=== PATIENT | female | born 1980 | race African-American/Black ===

== ENCOUNTER 2016-11-19 06:20 | Emergency (ER) | payer SELFPAY ==
--- NOTE | 2016-11-19 07:41 | ER Document Report ---
ED GI/ - General Chief Complaint: Vaginal Bleeding Stated Complaint: POS/FALSE PREGO TEST Time Seen by Provider: 11/19/16 07:40 Mode of Arrival: Ambulatory Information source: Patient Notes: 36 yo female c/o heavy vaginal bleeding with cramping, 4 episodes in 1 month, this episode started on Thursday. false then negative few weeks ago at home. PMH: ovarian cyst, umbilical hernia repair, 2010 ectopic resulting in salpingectomy (doesnt remember the side). . No vaginal d/c or odor. No hx hypothyroid.PCP: cuco. No hormones. No contraceptives. TRAVEL OUTSIDE OF THE [place] IN LAST 30 DAYS: No - Related Data Allergies/Adverse Reactions: No Known Allergies Allergy (Verified 02/15/16 01:51) Home Medications: Current Home Medications No Home Medications 11/19/16 [History] Past Medical History - General Information source: Patient - Social History Smoking Status: Current Every Day Smoker Frequency of alcohol use: None Drug Abuse: None Lives with: Spouse/Significant other Family History: None Patient has suicidal ideation: No Patient has homicidal ideation: No Renal/ Medical History: Reports: Hx Ectopic , Hx Ovarian Cysts. Denies: Hx Peritoneal Dialysis Past Surgical History: Reports: Hx Gynecologic Surgery - salpingectomy due to ectopic ? side, Hx Herniorrhaphy, Hx Oral Surgery - WISDOM TEETH - Immunizations Immunizations up to date: Yes Hx Diphtheria, Pertussis, Tetanus Vaccination: Yes Review of Systems - Review of Systems Constitutional: No symptoms reported EENT: No symptoms reported Cardiovascular: No symptoms reported Respiratory: No symptoms reported Gastrointestinal: No symptoms reported Genitourinary: No symptoms reported Female Genitourinary: See HPI Musculoskeletal: No symptoms reported Skin: No symptoms reported Hematologic/Lymphatic: No symptoms reported Neurological/Psychological: No symptoms reported Physical Exam - Vital signs Vitals: Temp Pulse Resp BP Pulse Ox 98.7 F 84 18 112/78 96 11/19/16 06:47 11/19/16 06:47 11/19/16 06:47 11/19/16 06:47 11/19/16 06:47 Interpretation: Normal - General General appearance: Appears well, Alert In distress: None - HEENT Head: Normocephalic, Atraumatic Eyes: Normal Pupils: PERRL Neck: Supple. No: Lymphadenopathy, Thyromegally - Respiratory Respiratory status: No respiratory distress Chest status: Nontender Breath sounds: Normal Chest palpation: Normal - Cardiovascular Rhythm: Regular Heart sounds: Normal auscultation Murmur: No - Abdominal Inspection: Normal Distension: No distension Bowel sounds: Normal Tenderness: Nontender. No: Tender Organomegaly: No organomegaly - Genitourinary External exam: Normal Speculum exam: Cervix closed Vaginal bleeding: Moderate Bimanuel exam: No: Cervical motion tender, Adnexal tenderness - Back Back: Normal, Nontender. No: CVA tenderness - Extremities General upper extremity: Normal inspection, Nontender, Normal color, Normal ROM , Normal temperature General lower extremity: Normal inspection, Nontender, Normal color, Normal ROM , Normal temperature, Normal weight bearing. No: Liseth's sign - Neurological Neuro grossly intact: Yes Cognition: Normal Orientation: AAOx4 [place] Coma Scale Eye Opening: Spontaneous [place] Coma Scale Verbal: Oriented [place] Coma Scale Motor: Obeys Commands [place] Coma Scale Total: 15 Speech: Normal Motor strength normal: LUE, RUE, LLE, RLE Sensory: Normal - Psychological Associated symptoms: Normal affect, Normal mood - Skin Skin Temperature: Warm Skin Moisture: Dry Skin Color: Normal Course - Re-evaluation Re-evalutation: 11/19/16 09:11 negative test, CBC OK. 11/19/16 10:36 Gonorrhea positive will treat with Rocephin 1 g IV since she has a saline lock in her left antecubital. Chlamydia is negative. 11/19/16 11:54 Small left hemorrhagic ovarian cyst - Vital Signs Vital signs: Temp Pulse Resp BP Pulse Ox 98.5 F 70 18 110/70 98 11/19/16 11:37 11/19/16 11:37 11/19/16 11:37 11/19/16 11:37 11/19/16 11:37 - Laboratory Result Diagrams: 11/19/16 07:58 Laboratory results interpreted by me: 11/19/16 11/19/16 07:58 08:37 WBC 11.8 H MCV 79 L MCH 26.7 L N.gonorrhoeae DNA (PCR) DETECTED H Discharge - Discharge Clinical Impression: vaginal bleeding, Gonorrhea Condition: Good Disposition: HOME, SELF-CARE Instructions: Gonorrhea ([facility]), Rocephin ([facility]), Vaginal Bleeding ([facility]), Ovarian Cyst ([facility]) Additional Instructions: sex partner needs to be treated for gonorrhea, if you have sex with him prior to his tx you will get the infection back copy of labs given to you to er if symptoms worsen Please complete the patient satisfaction survey if you get one, and return it.. If you do not receive a survey, then you can go to the [facility] website, [email or web address] and place your comments about your very good care. Thank you very much. It was a pleasure being your medical provider today.
[2016-11-19 08:19] LABS: ABSOLUTE LYMPHOCYTES (AUTO) 4.3 10^3/uL (0.5-4.7); ABSOLUTE NEUT (AUTO) 6.4 10^3/uL (1.7-8.2); BASOPHILS % (AUTO) 0.4 % (0-2); EOSINOPHILS % (AUTO) 0.3 % (0-6); HEMATOCRIT 40.1 % (36.0-47.0); HEMOGLOBIN 13.6 g/dL (12.0-15.5); HGB HCT DIFFERENCE 0.7; LYMPHOCYTES % (AUTO) 36.4 % (13-45); MEAN CORPUSCULAR HEMOGLOBIN 26.7 pg (27.0-33.4); MEAN CORPUSCULAR HGB CONC 33.9 g/dL (32.0-36.0); MEAN CORPUSCULAR VOLUME 79 fl (80-97); MONOCYTES % (AUTO) 8.7 % (3-13); RED BLOOD COUNT 5.11 10^6/uL (3.72-5.28); RED CELL DISTRIBUTION WIDTH 13.6 % (11.5-14.0); SEGMENTED NEUTROPHILS % (AUTO) 54.2 % (42-78); WHITE BLOOD COUNT 11.8 10^3/uL (4.0-10.5)
[2016-11-19 10:20] LABS: CHLAM PCR NOT DETECTED (NOT DETECT)
[2016-11-19] MEDS ORDERED: CEFTRIAXONE INJ 250 MG VIAL IM ONE (10:23)
--- NOTE | 2016-11-19 10:51 | RADIOLOGY REPORT (SQ) ---
EXAM DESCRIPTION: U/S NON OB PEL TV W/DOPPLER COMPLETED DATE/TIME: 11/19/2016 10:21 am REASON FOR STUDY: vaginal bleeding, cramping COMPARISON: Pelvic ultrasound 01/12/2014, 07/26/2012 TECHNIQUE: Dynamic and static grayscale images acquired of the pelvis via transvaginal approach and recorded on PACS. Additional selected color Doppler and spectral images recorded. LIMITATIONS: None. FINDINGS: UTERUS: Contour normal. No mass. Uterus is 7.5 x 4.7 x 4.4 cm in size. ENDOMETRIAL STRIPE: No focal or generalized thickening. No masses. 5 to 6 mm in thickness. CERVIX: Small 7 mm nabothian cyst. RIGHT OVARY: Right ovary is 3.4 x 1.9 x 1.6 cm in size. RIGHT OVARY DOPPLER: Normal arterial vascular flow without evidence for torsion. LEFT OVARY: Left ovary 2.8 x 1.9 x 1.6 cm in size, with a hemorrhagic follicle cyst measuring 1.2 cm in size LEFT OVARY DOPPLER: Normal arterial vascular flow without evidence for torsion. FREE FLUID: None noted. OTHER: No other significant finding. IMPRESSION: Left ovary hemorrhagic cyst 1.2 cm in size. No free pelvic or adnexal free fluid. Otherwise unremarkable study TECHNICAL DOCUMENTATION: JOB ID: [id number]- All Rights Reserved
[2016-11-19] MEDS ORDERED: CEFTRIAXONE 1 GM/D5W RTU 1 GM/50 ML RTUPB IV ONE (11:30)
[2016-11-19 11:48] VITALS: BP 110/70
== END 2016-11-19 12:04 | disposition home or self-care (01) ==
LOC: ER 06:20
DX: A54.9 Gonococcal infection, unspecified (principal); N93.9 Abnormal uterine and vaginal bleeding, unspecified; F17.200 Nicotine dependence, unspecified, uncomplicated
CPT/HCPCS: 99284; 96365; 86900; 86901; 36415; 87210; 84702; 84443; 85025; 87491; 87591; 76830; 93976; J0696

== ENCOUNTER 2017-05-19 10:03 | Emergency (ER) | payer SELFPAY ==
--- NOTE | 2017-05-19 11:18 | ER Document Report ---
ED GI/ - General Chief Complaint: Vaginal Bleeding Stated Complaint: VAGINAL BLEEDING Time Seen by Provider: 05/19/17 11:17 Mode of Arrival: Ambulatory Information source: Patient Notes: 36-year-old female with vaginal bleeding for 3 weeks. She had a normal. Mid April. She is concerned that she might have an STD. Occasional cramping but no pain at this time. No flank pain. No fever or chills. No nausea vomiting or diarrhea. TRAVEL OUTSIDE OF THE [place] IN LAST 30 DAYS: No - Related Data Allergies/Adverse Reactions: No Known Allergies Allergy (Verified 05/19/17 10:05) Past Medical History - General Information source: Patient - Social History Smoking Status: Unknown if Ever Smoked Frequency of alcohol use: None Drug Abuse: None Lives with: Spouse/Significant other Family History: None Renal/ Medical History: Reports: Hx Ectopic , Hx Ovarian Cysts Past Surgical History: Reports: Hx Abdominal Surgery - hernia, Hx Genitourinary Surgery, Hx Gynecologic Surgery - salpingectomy due to ectopic ? side, Hx Herniorrhaphy, Hx Oral Surgery - WISDOM TEETH. Denies: Hx Pacemaker - Immunizations Immunizations up to date: Yes Hx Diphtheria, Pertussis, Tetanus Vaccination: Yes Review of Systems - Review of Systems Constitutional: No symptoms reported EENT: No symptoms reported Cardiovascular: No symptoms reported Respiratory: No symptoms reported Gastrointestinal: No symptoms reported Genitourinary: No symptoms reported Female Genitourinary: See HPI Musculoskeletal: No symptoms reported Skin: No symptoms reported Hematologic/Lymphatic: No symptoms reported Neurological/Psychological: No symptoms reported Physical Exam - Vital signs Vitals: Temp Pulse Resp BP Pulse Ox 99.2 F 84 16 109/63 96 05/19/17 10:10 05/19/17 10:10 05/19/17 10:10 05/19/17 10:10 05/19/17 10:10 Interpretation: Normal - General General appearance: Appears well, Alert - HEENT Head: Normocephalic, Atraumatic Eyes: Normal Pupils: PERRL Neck: Supple. No: Thyromegally - Respiratory Respiratory status: No respiratory distress Chest status: Nontender Breath sounds: Normal Chest palpation: Normal - Cardiovascular Rhythm: Regular Heart sounds: Normal auscultation Murmur: No - Abdominal Inspection: Normal Distension: No distension Bowel sounds: Normal Tenderness: Nontender. No: Tender Organomegaly: No organomegaly - Back Back: Normal, Nontender - Extremities General upper extremity: Normal inspection, Nontender, Normal color, Normal ROM , Normal temperature General lower extremity: Normal inspection, Nontender, Normal color, Normal ROM , Normal temperature, Normal weight bearing. No: Liseth's sign - Neurological Neuro grossly intact: Yes Cognition: Normal Orientation: AAOx4 [place] Coma Scale Eye Opening: Spontaneous [place] Coma Scale Verbal: Oriented [place] Coma Scale Motor: Obeys Commands [place] Coma Scale Total: 15 Speech: Normal Motor strength normal: LUE, RUE, LLE, RLE Sensory: Normal - Psychological Associated symptoms: Normal affect, Normal mood - Skin Skin Temperature: Warm Skin Moisture: Dry Skin Color: Normal Skin irregularity: negative: Rash Course - Re-evaluation Re-evalutation: 05/19/17 UA negative test negative wet mount negative. 05/19/17 19:42 The patient call back to get her STD culture results and they were negative. I told her to follow up with [facility] if the symptoms persist. - Vital Signs Vital signs: Temp Pulse Resp BP Pulse Ox 97.6 F 65 18 101/63 98 05/19/17 13:56 05/19/17 13:56 05/19/17 13:56 05/19/17 13:56 05/19/17 13:56 - Laboratory Result Diagrams: 05/19/17 11:50 Laboratory results interpreted by me: 05/19/17 05/19/17 11:30 11:50 WBC 12.5 H MCV 76 L MCH 25.3 L RDW 14.5 H Absolute Neutrophils 9.2 H Urine Blood LARGE H Urine Urobilinogen 2.0 H Discharge - Discharge Clinical Impression: Vaginal bleeding Condition: Good Disposition: HOME, SELF-CARE Instructions: Azithromycin ([facility]), Chlamydia ([facility]), Gonorrhea ([facility]), Rocephin ( [facility]), Vaginal Bleeding ([facility]) Additional Instructions: Call me in 2 hours for the STD culture results at [phone] Return to the emergency room for worsening symptoms Copy of lab were given to you Urine culture is pending Forms: Return to Work
[2017-05-19 12:27] LABS: RBCS (WET MOUNT) 4+ RBCS SEEN; T.VAGINALIS (WET MOUNT) NO TRICHOMONAS SEEN; WBCS (WET MOUNT) FEW WBCS SEEN; YEAST (WET MOUNT) NO YEAST SEEN
[2017-05-19 12:32] LABS: ABSOLUTE LYMPHOCYTES (AUTO) 2.6 10^3/uL (0.5-4.7); ABSOLUTE MONOCYTES (AUTO) 0.7 10^3/uL (0.1-1.4); ABSOLUTE NEUT (AUTO) 9.2 10^3/uL (1.7-8.2); BASOPHILS % (AUTO) 0.3 % (0-2); EOSINOPHILS % (AUTO) 0.2 % (0-6); HEMATOCRIT 36.6 % (36.0-47.0); HEMOGLOBIN 12.2 g/dL (12.0-15.5); LYMPHOCYTES % (AUTO) 20.8 % (13-45); MEAN CORPUSCULAR HEMOGLOBIN 25.3 pg (27.0-33.4); MEAN CORPUSCULAR HGB CONC 33.3 g/dL (32.0-36.0); MEAN CORPUSCULAR VOLUME 76 fl (80-97); MONOCYTES % (AUTO) 5.3 % (3-13); PLATELET COUNT 287 10^3/uL (150-450); RED BLOOD COUNT 4.81 10^6/uL (3.72-5.28); RED CELL DISTRIBUTION WIDTH 14.5 % (11.5-14.0); SEGMENTED NEUTROPHILS % (AUTO) 73.4 % (42-78); TOTAL CELLS COUNTED % (AUTO) 100 %; WHITE BLOOD COUNT 12.5 10^3/uL (4.0-10.5)
[2017-05-19 12:53] LABS: APPEARANCE,URINE SLIGHTLY-CLOUDY; BILIRUBIN,URINE NEGATIVE (NEGATIVE); GLUCOSE, URINE NEGATIVE (NEGATIVE); KETONES,URINE NEGATIVE (NEGATIVE); LEUKOCYTE ESTERASE,URINE NEGATIVE (NEGATIVE); NITRITE,URINE NEGATIVE (NEGATIVE); PROTEIN,URINE NEGATIVE (NEGATIVE); URINE SPECIFIC GRAVITY 1.031
[2017-05-19 12:56] LABS: COLOR,URINE YELLOW
[2017-05-19] MEDS ORDERED: CEFTRIAXONE INJ 250 MG VIAL IM ONE (13:36)
[2017-05-19] MEDS ORDERED: ONDANSETRON 4 MG TAB.RAPDIS PO ONE (13:37)
[2017-05-19] MEDS ORDERED: AZITHROMYCIN 250 MG TABLET PO ONE (13:37)
[2017-05-19] MEDS ORDERED: LIDOCAINE 1% INJ-PF (10 MG/ML) 30 ML SDV INJ ONE (13:37)
[2017-05-19 13:57] VITALS: BP 101/63
[2017-05-19 14:12] LABS: CHLAM PCR NOT DETECTED (NOT DETECT); GON PCR NOT DETECTED (NOT DETECT)
== END 2017-05-19 13:58 | disposition home or self-care (01) ==
LOC: ER 10:03
DX: N93.9 Abnormal uterine and vaginal bleeding, unspecified (principal); R25.2 Cramp and spasm; Z87.42 Personal history of other diseases of the female genital tract; Z87.59 Personal history of other complications of pregnancy, childbirth and the puerperium
CPT/HCPCS: 99284; 96372; 36415; 87210; 84702; 85025; 81001; 87491; 87591; S0119; J3490; J0696

== ENCOUNTER 2017-12-29 13:18 | Emergency (ER) | payer SELFPAY ==
[2017-12-29] MEDS ORDERED: ONDANSETRON 4 MG TAB.RAPDIS PO ONE (13:55)
--- NOTE | 2017-12-29 13:55 | ER Document Report ---
ED Medical Screen (RME) - General Chief Complaint: Psych Problem Stated Complaint: POSSIBLE DRUG WITHDRAWAL Time Seen by Provider: 12/29/17 13:47 Mode of Arrival: Ambulatory Information source: Patient Notes: 37-year-old female presents the emergency department for opiate withdrawal and depression. Patient states that she took 3 Percocet tablets this morning with cocaine. Patient states that she is taken a smaller amount of the drugs. She states that she is withdrawing at this time. She states that she is having abdominal cramping, nausea, vomiting. Patient denies any alcohol use. She denies any other drugs. Patient states that she feels depressed. She denies any suicidal or homicidal ideations. She denies any delusions or hallucinations. Patient is requesting rehabilitative services. TRAVEL OUTSIDE OF THE [place] IN LAST 30 DAYS: No - Related Data Allergies/Adverse Reactions: No Known Allergies Allergy (Verified 05/19/17 10:05) Past Medical History - Social History Frequency of alcohol use: Occasional Drug Abuse: Cocaine, Prescription drugs - Past Medical History Cardiac Medical History: Denies: Hx Coronary Artery Disease, Hx Heart Attack, Hx Hypertension Pulmonary Medical History: Denies: Hx Asthma, Hx Bronchitis, Hx COPD, Hx Pneumonia Neurological Medical History: Denies: Hx Cerebrovascular Accident, Hx Seizures Renal/ Medical History: Reports: Hx Ectopic , Hx Ovarian Cysts. Denies: Hx Peritoneal Dialysis Musculoskeltal Medical History: Denies Hx Arthritis Skin Medical History: Denies Hx MRSA Past Surgical History: Reports: Hx Abdominal Surgery - hernia, Hx Genitourinary Surgery, Hx Gynecologic Surgery - salpingectomy due to ectopic ? side, Hx Herniorrhaphy, Hx Oral Surgery - WISDOM TEETH. Denies: Hx Pacemaker - Immunizations Immunizations up to date: Yes Hx Diphtheria, Pertussis, Tetanus Vaccination: Yes Physical Exam - Vital signs Vitals: Temp Pulse Resp BP Pulse Ox 98.6 F 108 H 16 118/74 96 12/29/17 13:26 12/29/17 13:26 12/29/17 13:26 12/29/17 13:26 12/29/17 13:26 Course - Vital Signs Vital signs: Temp Pulse Resp BP Pulse Ox 98.6 F 108 H 16 118/74 96 12/29/17 13:26 12/29/17 13:26 12/29/17 13:26 12/29/17 13:26 12/29/17 13:26
[2017-12-29] MEDS ORDERED: HALOPERIDOL LACTATE INJ 5 MG/1 ML VIAL IM ONE (14:20)
[2017-12-29] MEDS ORDERED: LORAZEPAM INJ 2 MG/1 ML VIAL IM ONE (14:20)
[2017-12-29 14:23] LABS: ABSOLUTE LYMPHOCYTES (AUTO) 4.3 10^3/uL (0.5-4.7); ABSOLUTE MONOCYTES (AUTO) 0.8 10^3/uL (0.1-1.4); ABSOLUTE NEUT (AUTO) 6.4 10^3/uL (1.7-8.2); BASOPHILS % (AUTO) 0.3 % (0-2); EOSINOPHILS % (AUTO) 0.1 % (0-6); HEMATOCRIT 36.9 % (36.0-47.0); HEMOGLOBIN 12.9 g/dL (12.0-15.5); LYMPHOCYTES % (AUTO) 37.4 % (13-45); MEAN CORPUSCULAR HEMOGLOBIN 26.2 pg (27.0-33.4); MEAN CORPUSCULAR VOLUME 75 fl (80-97); MONOCYTES % (AUTO) 7.1 % (3-13); PLATELET COUNT 304 10^3/uL (150-450); RED BLOOD COUNT 4.92 10^6/uL (3.72-5.28); RED CELL DISTRIBUTION WIDTH 13.4 % (11.5-14.0); SEGMENTED NEUTROPHILS % (AUTO) 55.1 % (42-78); TOTAL CELLS COUNTED % (AUTO) 100 %; WHITE BLOOD COUNT 11.6 10^3/uL (4.0-10.5)
--- NOTE | 2017-12-29 14:27 | ER Document Report ---
ED Psych Disorder / Suicide - General Chief Complaint: Psych Problem Stated Complaint: POSSIBLE DRUG WITHDRAWAL Time Seen by Provider: 12/29/17 13:47 Mode of Arrival: Ambulatory Notes: 37-year-old female presents the emergency department for opiate withdrawal and depression under psychiatric IVC.. Patient states that she took 3 Percocet tablets this morning with cocaine. Patient states that she is taken a smaller amount of the drugs. She states that she is withdrawing at this time. Patient denies any alcohol use. She denies any other drugs. Patient states that she feels depressed. She denies any suicidal or homicidal ideations. She denies any delusions or hallucinations. The patient was seen in yard worker today asking to get into rehabilitation. She told him that if she does not get into rehabilitation there will be no tomorrow. The yard worker took this as a suicidal threat. IVC papers were filled out and the patient was brought here to the ER. Patient is very agitated. Patient has been not very cooperative with police and deputies. Patient does not want to answer questions for psychiatric workers. TRAVEL OUTSIDE OF THE [place] IN LAST 30 DAYS: No - Related Data Allergies/Adverse Reactions: No Known Allergies Allergy (Verified 05/19/17 10:05) Past Medical History - General Information source: Patient - Social History Smoking Status: Current Every Day Smoker Frequency of alcohol use: Occasional Drug Abuse: Cocaine, Prescription drugs Family History: None Patient has suicidal ideation: No Patient has homicidal ideation: No - Past Medical History Cardiac Medical History: Denies: Hx Coronary Artery Disease, Hx Heart Attack, Hx Hypertension Pulmonary Medical History: Denies: Hx Asthma, Hx Bronchitis, Hx COPD, Hx Pneumonia Neurological Medical History: Denies: Hx Cerebrovascular Accident, Hx Seizures Renal/ Medical History: Reports: Hx Ectopic , Hx Ovarian Cysts. Denies: Hx Peritoneal Dialysis Musculoskeletal Medical History: Denies Hx Arthritis Skin Medical History: Denies Hx MRSA Past Surgical History: Reports: Hx Abdominal Surgery - hernia, Hx Genitourinary Surgery, Hx Gynecologic Surgery - salpingectomy due to ectopic ? side, Hx Herniorrhaphy, Hx Oral Surgery - WISDOM TEETH. Denies: Hx Pacemaker - Immunizations Immunizations up to date: Yes Hx Diphtheria, Pertussis, Tetanus Vaccination: Yes Review of Systems - Review of Systems Constitutional: denies: Chills, Fever Cardiovascular: denies: Chest pain Respiratory: denies: Short of breath Gastrointestinal: Diarrhea, Nausea Neurological/Psychological: denies: Hallucinations, Headaches -: Yes All other systems reviewed and negative Physical Exam - Vital signs Vitals: Temp Pulse Resp BP Pulse Ox 98.6 F 108 H 16 118/74 96 12/29/17 13:26 12/29/17 13:26 12/29/17 13:26 12/29/17 13:26 12/29/17 13:26 - Notes Notes: GENERAL_APPEARANCE: well_nourished, alert, agitated uncooperative, no_acute_ distress, no_obvious_discomfort. VITALS: reviewed, see vital signs table. HEAD: no_swelling\tenderness on the head. EYES: PERRL, EOMI, conjunctiva_clear. NOSE: no_nasal_discharge. MOUTH: (-)decreased moisture. THROAT: no_tonsilar_inflammation, no_airway_obstruction. no_lymphadenopathy NECK: supple, no_neck_tenderness, (-)thyromegaly. BACK: no_back_tenderness. CHEST_WALL: no_chest_tenderness. LUNGS: no_wheezing, no_rales, no_rhonchi, (-)accessory muscle use, good air exchange bilateral. HEART: normal_rate, normal_rhythm, normal_S1, normal_S2, (-)S3, (-)S4, no_ murmur, no_rub. ABDOMEN: normal_BS, soft, no_abd_tenderness, (-)guarding, (-)rebound, no_ organomegaly, no_abd_masses. EXTREMITIES: good pulses in all_extremities, no_swelling\tenderness in the extremities, no_edema. SKIN: warm, dry, good_color, no_rash. MENTAL_STATUS: speech_clear, oriented_X_3, normal_affect, responds_ appropriately to questions. NEURO: Neg Motor or Sensory Deficits on exam, CN 2-12 intact, DTR 2+ symmetric x 4, No cerbellar signs PSYCH: Patient is very agitated. She denies suicidal or homicidal thoughts. Denies visual auditory hallucinations. She does admit to telling the yard worker that there may be no tomorrow. She stated that this is a possibility she could always overdose no matter what time or day she takes the drugs. Course - Re-evaluation Re-evalutation: 12/29/17 14:26 Patient arrives under IVC papers. Patient made suicidal threats to a yard worker. flow worker has IVC the patient. Patient is polysubstance abuser crack cocaine and opioids. States he usually orally takes Percocet. She usually smokes or snorts crack cocaine. Patient is so agitated. We will give her some Ativan and Haldol. She is not very cooperative she is fighting with the security staff. We will allow her to calm down before we get a full evaluation but we will upheld the IVC at this time she is certainly a danger to herself and others. 12/29/17 17:32 Patient is calm down with medications. Lab work was fairly reassuring. Sodium was 145 but this is likely due to dehydration due to her drug use I imagine she is not a properly hydrating. We will encourage some water and hydration here. Otherwise she is medically stable for any kind of inpatient or outpatient psychiatric care or detox. - Vital Signs Vital signs: Temp Pulse Resp BP Pulse Ox 98.6 F 108 H 16 118/74 96 12/29/17 13:26 12/29/17 13:26 12/29/17 13:26 12/29/17 13:26 12/29/17 13:26 - Laboratory Result Diagrams: 12/29/17 13:55 12/29/17 13:55 Laboratory results interpreted by me: 12/29/17 12/29/17 12/29/17 13:55 13:55 13:55 WBC 11.6 H MCV 75 L MCH 26.2 L Sodium 145.7 H Est GFR (Non-Af Amer) 51 L Urine Ketones TRACE H Urine Urobilinogen 4.0 H Ur Leukocyte Esterase TRACE H Acetaminophen 12/29/17 13:55 WBC MCV MCH Sodium Est GFR (Non-Af Amer) Urine Ketones Urine Urobilinogen Ur Leukocyte Esterase Acetaminophen < 10 L Discharge - Discharge Clinical Impression: Passive suicidal ideations, Polysubstance abuse Condition: Good Disposition: PSYCH HOSP/UNIT
[2017-12-29 14:33] LABS: APPEARANCE,URINE SLIGHTLY-CLOUDY; BILIRUBIN,URINE NEGATIVE (NEGATIVE); COLOR,URINE YELLOW; GLUCOSE, URINE NEGATIVE (NEGATIVE); KETONES,URINE TRACE mg/dL (NEGATIVE); LEUKOCYTE ESTERASE,URINE TRACE (NEGATIVE); NITRITE,URINE NEGATIVE (NEGATIVE); PROTEIN,URINE NEGATIVE (NEGATIVE); URINE SPECIFIC GRAVITY 1.021
[2017-12-29 14:47] LABS: ALANINE AMINOTRANSFERASE 19 U/L (9-52); ALBUMIN 4.3 g/dL (3.5-5.0); ALCOHOL 157 mg/dL (NONE DETECTED); ALKALINE PHOSPHATASE 91 U/L (38-126); ANION GAP 11 (5-19); ASPARTATE AMINO TRANSFERASE 34 U/L (14-36); BILIRUBIN,DIRECT 0.2 mg/dL (0.0-0.4); BILIRUBIN,TOTAL 0.3 mg/dL (0.2-1.3); BLOOD UREA NITROGEN 10 mg/dL (7-20); CALCIUM 9.2 mg/dL (8.4-10.2); CARBON DIOXIDE 29 mmol/L (22-30); CHLORIDE 106 mmol/L (98-107); GLUCOSE 97 mg/dL (75-110); POTASSIUM 4.2 mmol/L (3.6-5.0); SODIUM 145.7 mmol/L (137-145); TOTAL PROTEIN 7.6 g/dL (6.3-8.2)
[2017-12-29 15:01] LABS: URINE AMPHETAMINES SCREEN NEGATIVE; URINE BARBITURATES SCREEN NEGATIVE; URINE COCAINE SCREEN UNCONFIRMED POSITIVE; URINE MARIJUANA (THC) SCREEN NEGATIVE; URINE METHADONE SCREEN NEGATIVE; URINE PHENCYCLIDINE SCREEN NEGATIVE
[2017-12-29 15:07] LABS: URINE BENZODIAZEPINES SCREEN NEGATIVE
--- NOTE | 2017-12-29 15:48 | PSYCHOLOGICAL NOTE ---
Psych Note - Psych Note Date seen by psych provider: 12/29/17 Time seen by psych provider: 14:30 - Collateral from [facility] from [id number] Psych Note: Reason for Consult: IVC, SA, SI Contact Permissions: Mauricio from [facility] [phone], he is not on-call tonight so of after hours then Bridget Trejo [phone] (patient gave consent only to let him know she was in the ED, on 24 hour observation, where her car was and that she would call him as soon as she could) Patient is a 37 year old female who presented to the ED today via LE, petitioned for IVC by [facility] for SA, SI and aggression toward property. She denied current SI/HI. She stated if she had SI she would tell this clinician. When asked if she knew why she was in the ED she said "no not really." When confronted about her comment about "if I don't get detox tonight then there will be no tomorrow" when [facility] was on site visiting with her she replied "I did not mean I wanted to kill myself I meant if I can't get detox today then I won' t be getting detox tomorrow." She said she was still interested in detox. When informed she may have to stay the night given her reaction when [facility] saw her on site and then once she was in the ED she commented "I can't stay the night I have kids and a job." She was challenged about what she would have done about these concerns if she had gotten a bed for detox. She responded "nobody knows what I was doing yet." When informed this clinician would call anyone she wanted to let them know she asked her be called, jacques palma she was on a 24 hour observation, that her [facility], that their daughter knew where that person's house was and that patient would call him as soon as she could. This clinician did contact the to let him know these things. Patient was alert and oriented to person, place and situation. She was calm and cooperative for/with this clinician. She was somewhat guarded but did answer questions. She denied current SI/HI and said her comment about if no detox today then no tomorrow was about not going to detox tomorrow not killing herself. She did not appear to be responding to internal stimuli as evidenced by answering questions appropriately when addressed, making some eye contact as the evaluation went on and staying on topic. Thought processes were linear. Conversational speech was within normal limits for rate, tone and prosody. Intellectual abilities are estimated to be average. Insight, judgment and impulse control were impaired given under the influence of at least opiates and cocaine (patient reported to medical staff use of both today). Mauricio from [facility] provided the following collateral information. Patient originally from [facility]. She called [facility] for SA detox (Opiates, Cocaine: at least a gram per day and Alcohol) and SI (said didn't want to live anymore, didn 't trust herself, if no help by tomorrow will not be here). Once on site a friend named Megan was present and CHEYANNE BACA arrived. History of Depression and PTSD. Outpatient provider is Jessi in , last visit was for medication management last week. Medications include: Trazodone 25-50MG QHS, Vistaril 25MG TID, Prozac 20MG QAm and Prazosin 1MG QHS. She said she has been into drugs all her life. [facility] worker stated when a bed was not available patient made comment "if I don't get help and detox bed tonight there will be no tomorrow," then she became hostile via flipped grill on porch, slammed it against apartment wall and was throwing stuff, so he called in order to maintain safety [facility] Review of chart revealed patient informed medical staff she used cocaine this morning and took 3 Percocets. She further said she typically takes 5-10 Percocet. Her UDS was positive for Cocaine and Serum Alcohol Level was 157. Due to her lack of cooperation and irritable mood upon arrival to the ED Haldol 5MG IM and Ativan 2MG IM were administered. Diagnosis: Polysubstance Use 292.89 (F14.229) Cocaine Intoxication, Without Perceptual Disturbance, With Moderate to Severe Use Disorder 303.00 (F10.229) Alcohol Intoxication, With Moderate or Severe Use Disorder 292.9 (F11.99) Unspecified Opioid Related Use Disorder (per patient report) 309.81 (F43.10) Posttraumatic Stress Disorder by history Impression/Plan: Recommendation to maintain IVC given patient's UDS was positive for Cocaine and Serum Alcohol Level was 157 and her lack of cooperation when she first arrived to the ED. She denied current SI and said the statement she made with [facility] on site was referencing if not able to get detox tonight then not going to detox tomorrow while [facility] worker report is that it was in direct relation to SI. Will allow patient to sober up and then reassess in the morning for further determination of IVC. Patient stated she was still interested in detox. If she continues to be tomorrow morning will likely rescind IVC and discharge to [facility] for further voluntary SA detox placement. Consulted with Dr. Dhaliwal regarding the management and care of patient. ED Physician in agreement with recommendations.
--- NOTE | 2017-12-29 18:33 | EKG REPORT ---
SEVERITY:- NORMAL ECG - SINUS RHYTHM : Confirmed by: Loy Napoles MD 29-Dec-2017 18:31:13
--- NOTE | 2017-12-30 09:15 | ER Document Report ---
Doctor's Note Notes: 12/30/17 09:13 This is a 37-year-old female with a history of polysubstance abuse who was brought in under IVC papers because of suicidal ideations. Patient was agitated on arrival in the emergency room and required sedation. Her vital signs have been stable. Her labs show a white blood count of 11.6 (felt to be stress related), EtOH of 157 and a urine drug screen positive for cocaine. Patient has been evaluated by psychiatry and is awaiting placement.
--- NOTE | 2017-12-30 10:27 | PSYCHOLOGICAL NOTE ---
Psych Note - Psych Note Date seen by psych provider: 12/30/17 Time seen by psych provider: 07:45 Psych Note: Reason for Consult: IVC, SA, SI Contact Permissions: Mauricio from [facility] [phone], he is not on-call tonight so of after hours then Bridget Trejo [phone] (patient gave consent only to let him know she was in the ED, on 24 hour observation, where her car was and that she would call him as soon as she could) Patient is a 37 year old female who presented to the ED today via LE, petitioned for IVC by [facility] for SA, SI and aggression toward property. Clinician conducted check-in with patient. She reports that she is a little bit tired but confirms that remembers how and why she came to [facility]. She reports that she was feeling depressed and going through withdrawal symptoms. Patient denies thoughts of wanting to kill or harm herself. She continued to report that she uses opiates and cocaine "every other day" and has gone to detox in the past. She states the last time she went to detox was last year and had outpatient substance abuse treatment through [facility]. She confirms she is on medications with [facility] but could only remember Prozac and Vistaril reporting that she is prescribed to other medications also. Patient is alert and orientated to person, place, time and circumstance. Mood is euthymic with congruent affect. Patient denies suicidal and homicidal ideation. Delusions are absent behaviors congruent with an intact reality based presentation i.e. organized and linear thought process. Eye contact is fair. Intellectual abilities appear to be within the average range. Attention and concentration are good. Insight, judgment, impulse control are fair. No medication recommendations at this time Diagnosis: Polysubstance Use 292.89 (F14.229) Cocaine Intoxication, Without Perceptual Disturbance, With Moderate to Severe Use Disorder 303.00 (F10.229) Alcohol Intoxication, With Moderate or Severe Use Disorder 292.9 (F11.99) Unspecified Opioid Related Use Disorder (per patient report) 309.81 (F43.10) Posttraumatic Stress Disorder by history Impression\\plan: Patient is recommended for rescind of IVC and is cleared from acute psychiatric services. Patient arrived to [facility] ED under the influence and then went through withdrawal symptoms. Patient is no longer under the influence and denies thoughts of wanting to kill or harm herself. Patient discloses interest in substance abuse treatment and has an existing provider with [facility]. Patient is recommended to follow-up with [facility], [facility], for continued assistance in obtaining placement in detox. Patient was provided local resource list of detox facilities and other substance abuse treatment options. Dr. Dhaliwal was consulted and the care management this patient; attending physician is agreement with recommendations and disposition.
[2017-12-30 11:26] VITALS: BP 114/76
== END 2017-12-30 10:50 ==
LOC: ER 13:18
DX: R45.851 Suicidal ideations (principal); F14.10 Cocaine abuse, uncomplicated; F11.10 Opioid abuse, uncomplicated; F32.9 Major depressive disorder, single episode, unspecified; F17.200 Nicotine dependence, unspecified, uncomplicated; R19.7 Diarrhea, unspecified; R11.0 Nausea
CPT/HCPCS: 93005; 99285; 96372; 36415; 80307 ×3; 85025; 81025; 80053; 81001; 93010; S0119; J1630; J2060

== ENCOUNTER 2019-04-22 13:27 | Emergency (ER) | payer SELFPAY ==
[2019-04-22 13:38] VITALS: BP 143/77
[2019-04-22] MEDS ORDERED: ONDANSETRON 4 MG TAB.RAPDIS PO ONE (13:39)
[2019-04-22] MEDS ORDERED: NORMAL SALINE 1000 ML 1,000 ML IV ONE (13:39)
--- NOTE | 2019-04-22 13:40 | ER Document Report ---
ED Medical Screen (RME) - General Chief Complaint: Nausea Stated Complaint: LIGHTHEADED,NAUSEA,PALPITATION Time Seen by Provider: 04/22/19 13:36 TRAVEL OUTSIDE OF THE [place] IN LAST 30 DAYS: No - HPI Notes: 04/22/19 13:39 Patient is a 38-year-old female with mental health issues, no other medical issues, who presents complaining of nausea, lightheadedness, and occasional palpitations over the past few days. She has had decreased p.o. intake. She is still urinating normally. Patient does note some diarrhea as well. No fever, chest pain, shortness of breath, headache, abdominal pain. I have treated and performed a rapid initial assessment of this patient. A comprehensive ED assessment and evaluation of the patient, analysis of test results and completion of medical decision making process will be conducted by additional ED providers. PHYSICAL EXAMINATION: GENERAL: Well-appearing, well-nourished and in no acute distress. A&Ox4. Answers questions appropriately. Heart: RRR Lungs: grossly CTAB Abd: Limited exam in triage, grossly nontender. - Related Data Allergies/Adverse Reactions: No Known Allergies Allergy (Verified 05/19/17 10:05) Past Medical History - Past Medical History Cardiac Medical History: Denies: Hx Coronary Artery Disease, Hx Heart Attack, Hx Hypertension Pulmonary Medical History: Denies: Hx Asthma, Hx Bronchitis, Hx COPD, Hx Pneumonia Neurological Medical History: Denies: Hx Cerebrovascular Accident, Hx Seizures Renal/ Medical History: Reports: Hx Ectopic , Hx Ovarian Cysts. Denies: Hx Peritoneal Dialysis Musculoskeltal Medical History: Denies Hx Arthritis Skin Medical History: Denies Hx MRSA Past Surgical History: Reports: Hx Abdominal Surgery - hernia, Hx Genitourinary Surgery, Hx Gynecologic Surgery - salpingectomy due to ectopic ? side, Hx Herniorrhaphy, Hx Oral Surgery - WISDOM TEETH. Denies: Hx Pacemaker - Immunizations Immunizations up to date: Yes Hx Diphtheria, Pertussis, Tetanus Vaccination: Yes Physical Exam - Vital signs Vitals: Pulse Resp BP Pulse Ox 88 16 143/77 H 97 04/22/19 13:37 04/22/19 13:37 04/22/19 13:37 04/22/19 13:37 Course - Vital Signs Vital signs: Temp Pulse Resp BP Pulse Ox 88 16 143/77 H 97 04/22/19 13:37 04/22/19 13:37 04/22/19 13:37 04/22/19 13:37
[2019-04-22 14:08] LABS: ABSOLUTE LYMPHOCYTES (AUTO) 2.2 10^3/uL (0.5-4.7); ABSOLUTE MONOCYTES (AUTO) 0.7 10^3/uL (0.1-1.4); ABSOLUTE NEUT (AUTO) 9.6 10^3/uL (1.7-8.2); BASOPHILS % (AUTO) 0.3 % (0-2); HEMATOCRIT 37.9 % (36.0-47.0); HEMOGLOBIN 13.1 g/dL (12.0-15.5); LYMPHOCYTES % (AUTO) 17.7 % (13-45); MEAN CORPUSCULAR HEMOGLOBIN 26.1 pg (27.0-33.4); MEAN CORPUSCULAR HGB CONC 34.6 g/dL (32.0-36.0); MEAN CORPUSCULAR VOLUME 75 fl (80-97); MONOCYTES % (AUTO) 5.3 % (3-13); PLATELET COUNT 288 10^3/uL (150-450); RED BLOOD COUNT 5.02 10^6/uL (3.72-5.28); RED CELL DISTRIBUTION WIDTH 13.7 % (11.5-14.0); SEGMENTED NEUTROPHILS % (AUTO) 76.7 % (42-78); TOTAL CELLS COUNTED % (AUTO) 100 %; WHITE BLOOD COUNT 12.5 10^3/uL (4.0-10.5)
[2019-04-22 14:22] LABS: ALBUMIN 4.9 g/dL (3.5-5.0); ALKALINE PHOSPHATASE 103 U/L (38-126); ANION GAP 9 (5-19); ASPARTATE AMINO TRANSFERASE 38 U/L (14-36); BILIRUBIN,TOTAL 0.4 mg/dL (0.2-1.3); BLOOD UREA NITROGEN 12 mg/dL (7-20); CALCIUM 9.4 mg/dL (8.4-10.2); CARBON DIOXIDE 27 mmol/L (22-30); CHLORIDE 104 mmol/L (98-107); GLUCOSE 91 mg/dL (75-110); POTASSIUM 4.1 mmol/L (3.6-5.0); TOTAL PROTEIN 8.4 g/dL (6.3-8.2)
--- NOTE | 2019-04-22 14:51 | EKG REPORT ---
SEVERITY:- BORDERLINE ECG - SINUS RHYTHM PROBABLE LEFT ATRIAL ABNORMALITY : Confirmed by: Kelly Castaneda MD 22-Apr-2019 14:49:51
== END 2019-04-22 15:38 | disposition left against medical advice (07) ==
LOC: ER 13:27
DX: R11.0 Nausea (principal); R42 Dizziness and giddiness; R00.2 Palpitations
CPT/HCPCS: 93005; 36415; 83690; 83735; 84443; 85025; 80053; 93010; S0119; 99281

== ENCOUNTER 2019-09-17 13:00 | Emergency (ER) | payer SELFPAY ==
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
[2019-09-17 14:52] LABS: APPEARANCE,URINE CLEAR; BILIRUBIN,URINE NEGATIVE (NEGATIVE); COLOR,URINE STRAW; GLUCOSE, URINE NEGATIVE (NEGATIVE); KETONES,URINE NEGATIVE (NEGATIVE); LEUKOCYTE ESTERASE,URINE NEGATIVE (NEGATIVE); NITRITE,URINE NEGATIVE (NEGATIVE); PROTEIN,URINE NEGATIVE (NEGATIVE); URINE SPECIFIC GRAVITY 1.006; UROBILINOGEN,URINE NEGATIVE mg/dL (<2.0)
[2019-09-17] MEDS ORDERED: KETOROLAC TROMETHAMINE INJ/PF 30 MG/1 ML SDV IV ONE (15:11)
[2019-09-17 16:13] LABS: ABSOLUTE LYMPHOCYTES (AUTO) 1.8 10^3/uL (0.5-4.7); ABSOLUTE MONOCYTES (AUTO) 0.4 10^3/uL (0.1-1.4); ABSOLUTE NEUT (AUTO) 11.3 10^3/uL (1.7-8.2); BASOPHILS % (AUTO) 0.3 % (0-2); EOSINOPHILS % (AUTO) 0.1 % (0-6); HEMATOCRIT 37.8 % (36.0-47.0); LYMPHOCYTES % (AUTO) 13.2 % (13-45); MEAN CORPUSCULAR HGB CONC 34.5 g/dL (32.0-36.0); MEAN CORPUSCULAR VOLUME 76 fl (80-97); MONOCYTES % (AUTO) 3.3 % (3-13); PLATELET COUNT 296 10^3/uL (150-450); RED BLOOD COUNT 5.01 10^6/uL (3.72-5.28); RED CELL DISTRIBUTION WIDTH 14.1 % (11.5-14.0); SEGMENTED NEUTROPHILS % (AUTO) 83.1 % (42-78); TOTAL CELLS COUNTED % (AUTO) 100 %; WHITE BLOOD COUNT 13.6 10^3/uL (4.0-10.5)
[2019-09-17 16:30] LABS: ALBUMIN 4.1 g/dL (3.5-5.0); ALKALINE PHOSPHATASE 78 U/L (38-126); ANION GAP 5 (5-19); ASPARTATE AMINO TRANSFERASE 30 U/L (14-36); BILIRUBIN,TOTAL 0.4 mg/dL (0.2-1.3); BLOOD UREA NITROGEN 11 mg/dL (7-20); CALCIUM 9.4 mg/dL (8.4-10.2); CARBON DIOXIDE 26 mmol/L (22-30); CHLORIDE 106 mmol/L (98-107); GLUCOSE 90 mg/dL (75-110); POTASSIUM 4.3 mmol/L (3.6-5.0); TOTAL PROTEIN 7.2 g/dL (6.3-8.2)
--- NOTE | 2019-09-17 16:38 | RADIOLOGY REPORT (SQ) ---
EXAM DESCRIPTION: CT ABD/PELVIS WITH IV ONLY IMAGES COMPLETED DATE/TIME: 09/17/2019 4:24 pm REASON FOR STUDY: left flank pain COMPARISON: None. TECHNIQUE: CT scan of the abdomen and pelvis performed using helical scanning technique with dynamic intravenous contrast injection. No oral contrast. Images reviewed with lung, soft tissue, and bone w indows. Reconstructed coronal and sagittal MPR images reviewed. Delayed images for evaluation of the urinary system also acquired. All images stored on PACS. All CT scanners at this facility use dose modulation, iterative reconstruction, and/or weight based d osing when appropriate to reduce radiation dose to as low as reasonably achievable (ALARA). [facility]: Dose Right [facility]: CareDose [facility]: Dose Right [facility]: Teradose 4D [facility]: Teranetics CONTRAST TYPE AND DOSE: contrast/concentration: Isovue 350.00 mmol/ml; Total Contrast Delivered: 80. 0 ml; Total Saline Delivered: 68.0 ml RENAL FUNCTION: None required. The patient is less than 50 years old. RADIATION DOSE: CT Rad equipment meets quality standard of care and radiation dose reduction techniq ues were employed. CTDIvol: 6.0 - 7.6 mGy. DLP: 732 mGy-cm.. LIMITATIONS: None. FINDINGS: LOWER CHEST: No significant findings. LIVER: Normal size. No enhancing masses. No dilated ducts. SPLEEN: Normal size. No focal lesions. PANCREAS: No masses identified. No significant calcifications. No adjacent inflammation or peripancre atic fluid collections. Pancreatic duct not dilated. GALLBLADDER: No calcified stones. No inflammatory changes to suggest cholecystitis. ADRENAL GLANDS: No significant masses. RIGHT KIDNEY AND URETER: No cysts identified. No solid masses identified. No calcified stones. No hyd ronephrosis or hydroureter. LEFT KIDNEY AND URETER: No cysts identified. No solid masses identified. No calcified stones. No hydr onephrosis or hydroureter. AORTA AND VESSELS: No aneurysm. No dissection. Renal arteries, SMA, celiac without significant stenos is. RETROPERITONEUM: No bulky retroperitoneal adenopathy. BOWEL AND PERITONEAL CAVITY: No obstruction or inflammatory changes. No free fluid. APPENDIX: Normal. PELVIS: No mass. No free fluid. Unremarkable bladder. ABDOMINAL WALL: No masses. No hernias. BONES: Minimally displaced left lateral 9th and 10th rib fractures. OTHER: No other significant finding. IMPRESSION: Minimally displaced left lateral 9th and 10th rib fractures.Otherwise no acute findings. TECHNICAL DOCUMENTATION: JOB ID: [id number] [place]-72 Quality ID # [id number]: Final reports with documentation of one or more dose reduction techniques (e.g., Au tomated exposure control, adjustment of the mA and/or kV according to patient size, use of iterative reconstruction technique) 2010 [employer]- All Rights Reserved Reading location - IP/workstation name: [email or web address]
[2019-09-17 17:51] VITALS: BP 107/83
== END 2019-09-17 17:49 | disposition home or self-care (01) ==
LOC: ER 13:00
DX: S22.42XA Multiple fractures of ribs, left side, initial encounter for closed fracture (principal); Y04.8XXA Assault by other bodily force, initial encounter; F41.9 Anxiety disorder, unspecified; R35.0 Frequency of micturition; R10.9 Unspecified abdominal pain
CPT/HCPCS: 99284; 96374; 36415; 85025; 81025; 80053; 81001; 74177; J1885